=== PATIENT | male | born 1985 | race Caucasian/White ===

== ENCOUNTER 2019-05-15 16:42 | Emergency (ER) | payer MEDICAID ==
[~2019-05-15] VITALS: Ht 167.6 cm; Wt 175.0 kg
[~2019-05-15 16:42] MED LIST: CEPH-357 PO; HYDR1TAB PO; IBUP-1051 PO; LIDOcaine 1% W/epiNEPHrine 1:100,000 20ml vial ONE; REM15T PO; TRAM50TA2 PO; marijuana
[2019-05-15] MEDS ORDERED: SULF1TAB49 PO (17:44)
[2019-05-15] MEDS ORDERED: CEPH-572 PO (17:44)
[2019-05-15] MEDS ORDERED: ibuprofen tablet 400 MG TABLET PO ONE (18:10)
[2019-05-15 18:22] VITALS: BP 133/78
== END 2019-05-15 18:20 | disposition home or self-care (01) ==
LOC: ER 16:43
DX: L02.415 Cutaneous abscess of right lower limb (principal); F12.90 Cannabis use, unspecified, uncomplicated; Z88.8 Allergy status to other drugs, medicaments and biological substances; Z88.6 Allergy status to analgesic agent
CPT/HCPCS: 10060; 99283

== ENCOUNTER 2019-10-07 11:58 | Emergency (ER) | payer MEDICAID ==
[~2019-10-07] VITALS: Ht 170.2 cm; Wt 102.7 kg
[~2019-10-07 11:58] MED LIST changes: -LIDOcaine 1% W/epiNEPHrine 1:100,000 20ml vial ONE
[2019-10-07 12:06] VITALS: BP 117/72
[2019-10-07] MEDS ORDERED: LIDOcaine/PRILOcaine 5gm cream TP ONE (12:35)
[2019-10-07] MEDS ORDERED: LIDOcaine 1% W/epiNEPHrine 1:200,000 10ml vial IJ ONE (12:35)
[2019-10-07] MEDS ORDERED: HYDROcodone/acetaminophen 5mg/325mg tablet PO ONE (13:15)
[2019-10-07] MEDS ORDERED: SULF1TAB49 PO (13:15)
== END 2019-10-07 13:33 | disposition home or self-care (01) ==
LOC: ER 11:58
DX: L02.416 Cutaneous abscess of left lower limb (principal); F41.9 Anxiety disorder, unspecified; F31.9 Bipolar disorder, unspecified; F12.90 Cannabis use, unspecified, uncomplicated; Z98.890 Other specified postprocedural states; Z88.8 Allergy status to other drugs, medicaments and biological substances; Z88.6 Allergy status to analgesic agent; Z79.899 Other long term (current) drug therapy
CPT/HCPCS: 10060; 99283

== ENCOUNTER 2019-12-11 12:30 | Emergency (ER) | payer MEDICAID ==
[~2019-12-11] VITALS: Ht 167.6 cm; Wt 84.0 kg
[2019-12-11 12:34] VITALS: BP 142/84
== END 2019-12-11 12:37 | disposition left against medical advice (07) ==
LOC: ER 12:30
DX: K08.89 Other specified disorders of teeth and supporting structures (principal); Z53.21 Procedure and treatment not carried out due to patient leaving prior to being seen by health care provider